=== PATIENT | female | born 1985 | race Two or more races ===

== ENCOUNTER 2017-01-23 11:40 | Inpatient (IN) | payer BC, MEDICAID ==
[~2017-01-23] VITALS: Ht 175.3 cm; Wt 123.6 kg
[~2017-01-23 11:40] MED LIST: SUM25T
[2017-01-23 12:10] LABS: Basophils # (auto) 0 uL; Basophils % (auto) 0.4 % (0.0-2.0); CONDITION Y; DEFINITIVE SEE PRINTOUT; Eosinophils # (auto) 0 uL; Eosinophils % (auto) 0.6 % (0.0-7.0); Hemoglobin 12.4 g/dL (12.2-16.2); Lymphocytes # (auto) 2.1 uL; Lymphocytes % (auto) 41.9 % (10.0-50.0); Mean Corpuscular Hemoglobin 28.7 pg (28.0-32.0); Mean Corpuscular Hgb Conc. 34.4 g/dL (32.0-36.0); Mean Corpuscular Volume 83.5 fL (80.0-100.0); Mean Platelet Volume 9.9 fL (7.4-10.4); Monocytes # (auto) 0.5 uL; Monocytes % (auto) 9.5 % (0.0-12.0); Neutrophils # (auto) 2.4 uL; Neutrophils % (auto) 47.6 % (37.0-80.0); Red Cell Distribution Width 16.7 % (11.6-16.0)
[2017-01-23 12:29] LABS: Platelet Count (auto) 4 10^3/uL (140-450)
[2017-01-23 12:34] LABS: Albumin 3.1 g/dL (3.4-5.0); BUN/Creatinine Ratio 11.8; Bilirubin, Total 0.5 mg/dL (0.2-1.0); Calcium 8.4 mg/dL (8.5-10.1); Potassium 3.4 mmol/L (3.5-5.1); Total Protein 6.6 g/dL (6.4-8.2)
[2017-01-23] MEDS ORDERED: SODIUM CHLORIDE 0.9% 1,000 ML IV ONE (16:53)
[2017-01-23] MEDS ORDERED: NALBUPHINE HCL 10 MG/1ml INJECTION IV ONE (17:00)
[2017-01-23] MEDS ORDERED: POTASSIUM CHL 10% (20 MEQ/15ML) ORAL SOLN PO ONE (17:00)
[2017-01-23] MEDS ORDERED: METOCLOPRAMIDE HCL 5MG/ml INJ 2ml VIAL IV ONE (17:00)
[2017-01-23 17:34] LABS: INR 1.11 (0.9-1.15); Partial Thromboplastin Time 31.2 sec (22.64-33.71); Prothrombin Time 12.1 sec (9.37-12.3)
[2017-01-23 17:39] LABS: Magnesium 1.8 mg/dL (1.6-2.6)
[2017-01-23 18:33] LABS: Urine Bilirubin Negative (Negative); Urine Ca Oxalate Crystal FEW (None Seen); Urine Color Yellow (Yellow); Urine Glucose Normal (Normal); Urine Ketone Negative (Negative); Urine Mucus FEW (None Seen); Urine Nitrite Negative (Negative); Urine RBC 5 /hpf (0 - 4); Urine Squamous Epithelial Cell FEW /hpf (<5); Urine Urobilinogen Normal (Negative)
[2017-01-23 18:34] LABS: Urine Blood 1+ /uL (Negative)
[2017-01-23] MEDS ORDERED: IOHEXOL 300 MG/ML 100ML BOTTLE IJ ONE (19:44)
[2017-01-23] MEDS ORDERED: cefTRIAXone 1GM/50ML D5W 50 ML IV ONE (21:30)
[2017-01-23] MEDS ORDERED: MORPHINE SULFATE 4 MG/ML SYRG IV PRN ×2 (21:30→22:00)
[2017-01-23] MEDS ORDERED: NITROGLYCERIN 0.4 MG SL TAB SL PRN (21:30)
[2017-01-23] MEDS: SODIUM CHLORIDE 0.9% 1,000 ML IV SCH (21:51)
[2017-01-23] MEDS ORDERED: ONDANSETRON HCL 4 MG/2 ML VIAL IV ONE (22:00)
[2017-01-23] MEDS: methylPREDNISolone SOD SUCC 40 MG/ML VL IV SCH (22:33)
[2017-01-23 22:44] VITALS: BP 114/60
[2017-01-23] MEDS: IBUPROFEN 400 MG TAB PO PRN (23:26)
[2017-01-24] VITALS (14 sets, daily range): BP systolic 101–114; BP diastolic 50–76
[2017-01-24] MEDS ORDERED: DIC10C PO (03:01)
[2017-01-24] MEDS: SODIUM CHLORIDE 0.9% 1,000 ML IV SCH ×2 (06:34→17:56)
[2017-01-24] MEDS: methylPREDNISolone SOD SUCC 40 MG/ML VL IV SCH (06:35)
[2017-01-24] MEDS: cefTRIAXone 1GM/50ML D5W 50 ML IV SCH (09:35)
[2017-01-24] MEDS: PANTOPRAZOLE 40 MG TAB PO SCH (09:36)
[2017-01-24] MEDS: DEXAMETHASONE SOD PHOS 10MG/1ML VIAL INJ IV SCH ×2 (12:04→18:05)
[2017-01-24] MEDS: ONDANSETRON HCL 4 MG/2 ML VIAL IV PRN ×2 (12:21→18:05)
[2017-01-24] MEDS: IBUPROFEN 400 MG TAB PO PRN (18:05)
[2017-01-24 18:14] LABS: Basophils # (auto) 0 uL; Basophils % (auto) 0.3 % (0.0-2.0); CONDITION Y; DEFINITIVE SEE PRINTOUT; Eosinophils # (auto) 0 uL; Eosinophils % (auto) 0.2 % (0.0-7.0); Hematocrit 33.7 % (36.0-46.0); Hemoglobin 11.5 g/dL (12.2-16.2); Lymphocytes # (auto) 3.1 uL; Lymphocytes % (auto) 35.6 % (10.0-50.0); Mean Corpuscular Hemoglobin 28.6 pg (28.0-32.0); Mean Corpuscular Volume 84.2 fL (80.0-100.0); Mean Platelet Volume 9.7 fL (7.4-10.4); Monocytes # (auto) 0.8 uL; Monocytes % (auto) 9.8 % (0.0-12.0); Neutrophils # (auto) 4.7 uL; Neutrophils % (auto) 54.1 % (37.0-80.0); White Blood Cell 8.6 10^3/uL (4.4-10.8)
[2017-01-24 18:33] LABS: Platelet Count (auto) 18 10^3/uL (140-450)
[2017-01-25] VITALS (7 sets, daily range): BP systolic 97–116; BP diastolic 44–64
[2017-01-25] MEDS: DEXAMETHASONE SOD PHOS 10MG/1ML VIAL INJ IV SCH ×4 (00:07→19:02)
[2017-01-25] MEDS: ONDANSETRON HCL 4 MG/2 ML VIAL IV PRN ×4 (00:08→19:02)
[2017-01-25] MEDS: SODIUM CHLORIDE 0.9% 1,000 ML IV SCH ×2 (03:30→13:30)
[2017-01-25 06:51] LABS: Basophils # (auto) 0 uL; Basophils % (auto) 0.1 % (0.0-2.0); CONDITION Y; DEFINITIVE SEE PRINTOUT; Eosinophils # (auto) 0 uL; Eosinophils % (auto) 0.2 % (0.0-7.0); Hematocrit 32.1 % (36.0-46.0); Hemoglobin 10.7 g/dL (12.2-16.2); Lymphocytes # (auto) 2.8 uL; Lymphocytes % (auto) 35.3 % (10.0-50.0); Mean Corpuscular Hemoglobin 28.3 pg (28.0-32.0); Mean Corpuscular Hgb Conc. 33.4 g/dL (32.0-36.0); Mean Corpuscular Volume 84.6 fL (80.0-100.0); Mean Platelet Volume 10.5 fL (7.4-10.4); Monocytes # (auto) 0.7 uL; Monocytes % (auto) 8.4 % (0.0-12.0); Neutrophils # (auto) 4.5 uL; Red Cell Distribution Width 18.1 % (11.6-16.0)
[2017-01-25 06:59] LABS: Platelet Count (auto) 14 10^3/uL (140-450)
[2017-01-25 08:10] LABS: Albumin 2.7 g/dL (3.4-5.0); Alkaline Phosphatase 51 U/L (45-117); Aspartate Aminotransferase 8 U/L (15-37); Bilirubin, Direct < 0.1 mg/dL (0-0.2); Bilirubin, Total 0.2 mg/dL (0.2-1.0); Total Protein 5.9 g/dL (6.4-8.2)
[2017-01-25] MEDS: cefTRIAXone 1GM/50ML D5W 50 ML IV SCH (09:19)
[2017-01-25] MEDS: PANTOPRAZOLE 40 MG TAB PO SCH (09:20)
[2017-01-26] MEDS: DEXAMETHASONE SOD PHOS 10MG/1ML VIAL INJ IV SCH ×4 (00:36→18:04)
[2017-01-26] MEDS: ONDANSETRON HCL 4 MG/2 ML VIAL IV PRN ×4 (00:38→18:04)
[2017-01-26] MEDS: SODIUM CHLORIDE 0.9% 1,000 ML IV SCH ×3 (00:39→12:23)
[2017-01-26 05:00] VITALS: BP 112/54
[2017-01-26 05:21] LABS: Basophils # (auto) 0 uL; Basophils % (auto) 0.2 % (0.0-2.0); CONDITION Y; DEFINITIVE SEE PRINTOUT; Eosinophils # (auto) 0 uL; Hematocrit 29.5 % (36.0-46.0); Hemoglobin 9.9 g/dL (12.2-16.2); Lymphocytes # (auto) 1.3 uL; Lymphocytes % (auto) 30.5 % (10.0-50.0); Mean Corpuscular Hemoglobin 28.3 pg (28.0-32.0); Mean Corpuscular Hgb Conc. 33.6 g/dL (32.0-36.0); Mean Corpuscular Volume 84.1 fL (80.0-100.0); Monocytes # (auto) 0.2 uL; Monocytes % (auto) 5.6 % (0.0-12.0); Neutrophils # (auto) 2.8 uL; Neutrophils % (auto) 63.7 % (37.0-80.0); Red Cell Distribution Width 18.1 % (11.6-16.0); White Blood Cell 4.4 10^3/uL (4.4-10.8)
[2017-01-26 05:33] LABS: Platelet Count (auto) 15 10^3/uL (140-450)
[2017-01-26 08:26] VITALS: BP 105/61
[2017-01-26] MEDS: cefTRIAXone 1GM/50ML D5W 50 ML IV SCH (09:00)
[2017-01-26] MEDS: PANTOPRAZOLE 40 MG TAB PO SCH (10:32)
[2017-01-26 12:40] VITALS: BP 113/54
[2017-01-26 15:08] LABS: Sjogren's Anti-SS-A Antibody <0.2 AI (0.0-0.9)
[2017-01-26 16:23] VITALS: BP 114/54
[2017-01-26 22:00] VITALS: BP 119/49
[2017-01-27] MEDS: ONDANSETRON HCL 4 MG/2 ML VIAL IV PRN ×4 (00:12→18:19)
[2017-01-27] MEDS: DEXAMETHASONE SOD PHOS 10MG/1ML VIAL INJ IV SCH ×4 (00:12→18:18)
[2017-01-27] MEDS: SODIUM CHLORIDE 0.9% 1,000 ML IV SCH ×2 (00:14→15:30)
[2017-01-27 05:28] LABS: Basophils # (auto) 0 uL; Basophils % (auto) 0.3 % (0.0-2.0); CONDITION Y; DEFINITIVE SEE PRINTOUT; Eosinophils # (auto) 0 uL; Eosinophils % (auto) 0.1 % (0.0-7.0); Hematocrit 29.2 % (36.0-46.0); Hemoglobin 9.9 g/dL (12.2-16.2); Lymphocytes # (auto) 0.8 uL; Lymphocytes % (auto) 28.9 % (10.0-50.0); Mean Corpuscular Hemoglobin 28.4 pg (28.0-32.0); Mean Corpuscular Hgb Conc. 33.7 g/dL (32.0-36.0); Mean Corpuscular Volume 84.3 fL (80.0-100.0); Mean Platelet Volume 9.8 fL (7.4-10.4); Monocytes # (auto) 0.1 uL; Monocytes % (auto) 5.1 % (0.0-12.0); Neutrophils # (auto) 1.9 uL; Neutrophils % (auto) 65.6 % (37.0-80.0); Platelet Count (auto) 21 10^3/uL (140-450); Red Cell Distribution Width 17.4 % (11.6-16.0); White Blood Cell 2.9 10^3/uL (4.4-10.8)
[2017-01-27 05:49] VITALS: BP 116/60
[2017-01-27 08:00] VITALS: BP 107/60
[2017-01-27 08:36] VITALS: BP 107/60
[2017-01-27] MEDS ORDERED: HYDROmorphone HCL 2 MG/ML VL IV ONE (08:45)
[2017-01-27] MEDS ORDERED: HYDROmorphone HCL 2 MG/ML VL IV PRN (08:45)
[2017-01-27] MEDS: PANTOPRAZOLE 40 MG TAB PO SCH (10:03)
[2017-01-27] MEDS: cefTRIAXone 1GM/50ML D5W 50 ML IV SCH (10:03)
[2017-01-27 13:00] VITALS: BP 123/47
[2017-01-27 16:18] VITALS: BP 112/59
[2017-01-27 22:00] VITALS: BP 110/53
[2017-01-28] MEDS: DEXAMETHASONE SOD PHOS 10MG/1ML VIAL INJ IV SCH ×3 (01:46→12:00)
[2017-01-28] MEDS: ONDANSETRON HCL 4 MG/2 ML VIAL IV PRN ×2 (01:46→06:30)
[2017-01-28] MEDS: SODIUM CHLORIDE 0.9% 1,000 ML IV SCH ×2 (01:46→11:30)
[2017-01-28 05:00] VITALS: BP 123/62
[2017-01-28 05:21] LABS: Basophils # (auto) 0 uL; Basophils % (auto) 0.1 % (0.0-2.0); CONDITION Y; DEFINITIVE SEE PRINTOUT; Eosinophils # (auto) 0 uL; Eosinophils % (auto) 0.1 % (0.0-7.0); Hematocrit 30.6 % (36.0-46.0); Hemoglobin 10.1 g/dL (12.2-16.2); Lymphocytes # (auto) 1.1 uL; Lymphocytes % (auto) 32.9 % (10.0-50.0); Mean Corpuscular Hgb Conc. 33.1 g/dL (32.0-36.0); Mean Corpuscular Volume 84.7 fL (80.0-100.0); Mean Platelet Volume 9.9 fL (7.4-10.4); Monocytes # (auto) 0.2 uL; Monocytes % (auto) 5.9 % (0.0-12.0); Neutrophils # (auto) 2.1 uL; Platelet Count (auto) 29 10^3/uL (140-450); Red Cell Distribution Width 17.1 % (11.6-16.0); White Blood Cell 3.4 10^3/uL (4.4-10.8)
[2017-01-28 08:00] VITALS: BP 117/61
[2017-01-28 08:48] VITALS: BP 117/61
[2017-01-28] MEDS: cefTRIAXone 1GM/50ML D5W 50 ML IV SCH (09:00)
[2017-01-28] MEDS ORDERED: PRE5T PO (09:51)
[2017-01-28] MEDS ORDERED: CIPR-173 PO (09:53)
[2017-01-28] MEDS: PANTOPRAZOLE 40 MG TAB PO SCH (10:00)
[2017-01-28 12:08] VITALS: BP 117/61
[2017-01-28 14:37] VITALS: BP 109/57
[2017-01-28] MEDS ORDERED: predniSONE 20 MG TAB PO SCH (16:00)
== END 2017-01-28 13:15 | disposition home or self-care (01) | DRG 689 ==
LOC: ER 11:40 → OVERFLOW 11:41 → CENTRAL 22:40 → EAST 01-25 15:10
PROVIDERS: ADMIT Nurse Practitioner Family; ATTEND Internal Medicine
PROC: 30233R1 Transfusion of Nonautologous Platelets into Peripheral Vein, Percutaneous Approach (ICD-10-PCS; principal; 2017-01-23)
DX: N39.0 Urinary tract infection, site not specified (principal); E43 Unspecified severe protein-calorie malnutrition; D69.3 Immune thrombocytopenic purpura; Z68.41 Body mass index [BMI] 40.0-44.9, adult; E66.01 Morbid (severe) obesity due to excess calories; E87.6 Hypokalemia; F41.9 Anxiety disorder, unspecified; K58.0 Irritable bowel syndrome with diarrhea; B96.1 Klebsiella pneumoniae [K. pneumoniae] as the cause of diseases classified elsewhere; G43.909 Migraine, unspecified, not intractable, without status migrainosus; Z88.5 Allergy status to narcotic agent; Z88.8 Allergy status to other drugs, medicaments and biological substances
CPT/HCPCS: 36415; 71020; 74177; 76705; 80053; 80076; 81001; 81025; 82607; 83036; 83615; 83690; 83735; 84132; 84443; 84484; 85025; 85610; 85730; 86038; 86703; 86850; 86900; 86901; 87086; 87088; 87186; 87493; 93005; 94761; 96361; 96365; 96375; J0696; J1100; J2405

== ENCOUNTER 2017-03-07 20:48 | Inpatient (IN) | payer BC ==
[~2017-03-07] VITALS: Ht 175.3 cm; Wt 109.5 kg
[~2017-03-07 20:48] MED LIST changes: +CIPR-173 PO; +DIC10C PO; +PRE5T PO
[2017-03-07 21:27] LABS: Urine RBC None Seen /hpf (0 - 4)
[2017-03-07 21:28] LABS: CONDITION Y; DEFINITIVE SEE PRINTOUT; Hematocrit 34.1 % (36.0-46.0); Hemoglobin 11.6 g/dL (12.2-16.2); Mean Corpuscular Hemoglobin 30.9 pg (28.0-32.0); Mean Corpuscular Volume 91.1 fL (80.0-100.0); Mean Platelet Volume 12.6 fL (7.4-10.4); SUSPECT SEE PRINTOUT; White Blood Cell 8.9 10^3/uL (4.4-10.8)
[2017-03-07 21:46] LABS: Amylase 29 U/L (25-115); Anion Gap 10 (5-15); Aspartate Aminotransferase 42 U/L (15-37); BUN/Creatinine Ratio 13.2; Blood Urea Nitrogen 15 mg/dL (7-18); Calcium 7.9 mg/dL (8.5-10.1); Carbon Dioxide 24 mmol/L (21-32); Chloride 106 mmol/L (98-107); GFR African American 72 mL/min; GFR Non-African American 59 mL/min; Glucose 113 mg/dL (74-106); Potassium 4.5 mmol/L (3.5-5.1); Sodium 140 mmol/L (136-145)
[2017-03-07 21:46] LABS: Urine Bilirubin Negative (Negative); Urine Blood Negative /uL (Negative); Urine Color Yellow (Yellow); Urine Glucose Normal (Normal); Urine Ketone Negative (Negative); Urine Nitrite Negative (Negative); Urine Squamous Epithelial Cell FEW /hpf (<5); Urine Urobilinogen Normal (Negative); Urine pH 5.5 (5.0-8.0)
[2017-03-07 21:51] LABS: Alkaline Phosphatase 44 U/L (45-117); Bilirubin, Total 0.4 mg/dL (0.2-1.0); Total Protein 6.3 g/dL (6.4-8.2)
[2017-03-07 22:20] LABS: Red Cell Distribution Width 24.9 % (11.6-16.0)
[2017-03-07 22:26] LABS: Platelet Count (auto) 14 10^3/uL (140-450)
[2017-03-07 22:27] LABS: Myelocytes % 0; Promyelocytes % 0
[2017-03-07 23:32] LABS: Metamyelocytes % 3
[2017-03-07 23:33] LABS: Reactive Lymphocytes 8
[2017-03-07 23:39] LABS: Anisocytosis Slight; Stomatocytes Few
[2017-03-07 23:40] LABS: Platelet Estimate Markedly Decreased
[2017-03-08] VITALS (9 sets, daily range): BP systolic 104–127; BP diastolic 60–82
[2017-03-08] MEDS ORDERED: SODIUM CHLORIDE 0.9% 1,000 ML IV ONE (00:45)
[2017-03-08] MEDS ORDERED: HYDROmorphone HCL 2 MG/ML VL IV ONE (00:45)
[2017-03-08] MEDS ORDERED: ONDANSETRON HCL 4 MG/2 ML VIAL IV ONE (00:45)
[2017-03-08] MEDS ORDERED: ACETAMINOPHEN 500 MG TAB PO ONE (02:45)
[2017-03-08] MEDS: SODIUM CHLORIDE 0.9% 1,000 ML IV SCH (07:05)
[2017-03-08] MEDS ORDERED: TEMAZEPAM 15 MG CAP PO PRN (07:15)
[2017-03-08] MEDS ORDERED: ONDANSETRON HCL 4 MG/2 ML VIAL IV PRN (07:15)
[2017-03-08] MEDS ORDERED: SUMAtriptan SUCCINATE 25 MG TAB PO PRN (07:15)
[2017-03-08] MEDS ORDERED: cefTRIAXone 1GM/50ML D5W 50 ML IV ONE (08:00)
[2017-03-08] MEDS: predniSONE 20 MG TAB PO SCH ×3 (08:00→21:36)
[2017-03-08] MEDS: DICYCLOMINE HCL 10 MG CAP PO SCH ×3 (08:00→21:45)
[2017-03-08] MEDS: FAMOTIDINE 20 MG TAB PO SCH ×2 (10:00→21:36)
[2017-03-08] MEDS: traMADol HCL 50 MG TAB PO PRN ×2 (10:08→21:37)
[2017-03-08] MEDS: ACETAMINOPHEN 325 MG TAB PO PRN (10:50)
[2017-03-08 13:23] LABS: Urine Bilirubin Negative (Negative); Urine Blood Negative /uL (Negative); Urine Color Yellow (Yellow); Urine Glucose Normal (Normal); Urine Ketone Negative (Negative); Urine Nitrite Negative (Negative); Urine RBC None Seen /hpf (0 - 4); Urine Squamous Epithelial Cell FEW /hpf (<5); Urine Urobilinogen Normal (Negative)
[2017-03-09] VITALS (8 sets, daily range): BP systolic 94–120; BP diastolic 50–68
[2017-03-09] MEDS: SODIUM CHLORIDE 0.9% 1,000 ML IV SCH ×2 (05:36→16:25)
[2017-03-09 05:55] LABS: CONDITION Y; DEFINITIVE SEE PRINTOUT; Mean Corpuscular Hemoglobin 30.8 pg (28.0-32.0); Mean Corpuscular Hgb Conc. 33.2 g/dL (32.0-36.0); Mean Corpuscular Volume 92.7 fL (80.0-100.0); Mean Platelet Volume 11.4 fL (7.4-10.4); SUSPECT SEE PRINTOUT; White Blood Cell 5.9 10^3/uL (4.4-10.8)
[2017-03-09] MEDS: predniSONE 20 MG TAB PO SCH ×3 (05:58→22:26)
[2017-03-09] MEDS: DICYCLOMINE HCL 10 MG CAP PO SCH ×3 (05:59→22:00)
[2017-03-09 06:18] LABS: Potassium 5.2 mmol/L (3.5-5.1); Red Cell Distribution Width 25.7 % (11.6-16.0)
[2017-03-09 06:20] LABS: Platelet Count (auto) 17 10^3/uL (140-450)
[2017-03-09 06:21] LABS: Metamyelocytes % 0; Myelocytes % 0; Promyelocytes % 0; Reactive Lymphocytes 0
[2017-03-09 06:23] LABS: Albumin 2.9 g/dL (3.4-5.0); BUN/Creatinine Ratio 20.5; Calcium 8.4 mg/dL (8.5-10.1)
[2017-03-09 06:25] LABS: Bilirubin, Total 0.4 mg/dL (0.2-1.0); Total Protein 6.2 g/dL (6.4-8.2)
[2017-03-09] MEDS: cefTRIAXone 1GM/50ML D5W 50 ML IV SCH (09:06)
[2017-03-09] MEDS: FAMOTIDINE 20 MG TAB PO SCH ×2 (10:38→22:26)
[2017-03-09 11:56] LABS: BUN/Creatinine Ratio 22.5; Calcium 8.5 mg/dL (8.5-10.1); Potassium 4.7 mmol/L (3.5-5.1)
[2017-03-09 15:32] LABS: Platelet Estimate Markedly Decreased
[2017-03-09 15:33] LABS: Anisocytosis Slight; Stomatocytes Few
[2017-03-10] VITALS (9 sets, daily range): BP systolic 104–124; BP diastolic 57–79
[2017-03-10] MEDS: DICYCLOMINE HCL 10 MG CAP PO SCH ×3 (05:30→22:00)
[2017-03-10] MEDS: predniSONE 20 MG TAB PO SCH ×3 (05:35→22:13)
[2017-03-10 06:28] LABS: CONDITION Y; DEFINITIVE SEE PRINTOUT; Hematocrit 29.6 % (36.0-46.0); Hemoglobin 10.1 g/dL (12.2-16.2); Mean Corpuscular Hemoglobin 31.5 pg (28.0-32.0); Mean Corpuscular Hgb Conc. 34.1 g/dL (32.0-36.0); Mean Corpuscular Volume 92.2 fL (80.0-100.0); Mean Platelet Volume 10.6 fL (7.4-10.4); SUSPECT SEE PRINTOUT; White Blood Cell 6.4 10^3/uL (4.4-10.8)
[2017-03-10 06:42] LABS: Platelet Count (auto) 16 10^3/uL (140-450)
[2017-03-10 06:43] LABS: Metamyelocytes % 0; Myelocytes % 0; Promyelocytes % 0; Reactive Lymphocytes 0
[2017-03-10 06:46] LABS: Albumin 2.9 g/dL (3.4-5.0); BUN/Creatinine Ratio 23.9; Calcium 8.4 mg/dL (8.5-10.1); Potassium 4.5 mmol/L (3.5-5.1)
[2017-03-10 06:48] LABS: Bilirubin, Total 0.5 mg/dL (0.2-1.0); Total Protein 6.3 g/dL (6.4-8.2)
[2017-03-10] MEDS: traMADol HCL 50 MG TAB PO PRN ×2 (07:50→17:15)
[2017-03-10 07:52] LABS: Anisocytosis Slight; Hypochromia Slight; Platelet Estimate Markedly Decreased
[2017-03-10] MEDS: SODIUM CHLORIDE 0.9% 1,000 ML IV SCH (09:05)
[2017-03-10] MEDS: cefTRIAXone 1GM/50ML D5W 50 ML IV SCH (09:11)
[2017-03-10] MEDS: FAMOTIDINE 20 MG TAB PO SCH ×2 (09:11→22:13)
[2017-03-10] MEDS: ACETAMINOPHEN 325 MG TAB PO PRN ×2 (10:37→17:23)
[2017-03-10] MEDS ORDERED: DEXAMETHASONE SOD PHOS 4 MG/1ML SDV INJ IV ONE (10:45)
[2017-03-10] MEDS: methylPREDNISolone SOD SUCC 125 MG/2 ML VL IV SCH (22:12)
[2017-03-11] VITALS (9 sets, daily range): BP systolic 96–121; BP diastolic 56–69
[2017-03-11] MEDS: ACETAMINOPHEN 325 MG TAB PO PRN (00:08)
[2017-03-11] MEDS: PIPERACILLIN-TAZO 4.5GM 100 ML IV SCH ×4 (00:08→18:38)
[2017-03-11] MEDS: SODIUM CHLORIDE 0.9% 1,000 ML IV SCH ×2 (01:45→18:37)
[2017-03-11] MEDS: methylPREDNISolone SOD SUCC 125 MG/2 ML VL IV SCH ×3 (05:37→22:00)
[2017-03-11] MEDS: predniSONE 20 MG TAB PO SCH (05:38)
[2017-03-11] MEDS: DICYCLOMINE HCL 10 MG CAP PO SCH ×3 (05:38→22:00)
[2017-03-11 06:20] LABS: CONDITION Y; DEFINITIVE SEE PRINTOUT; Hemoglobin 9.4 g/dL (12.2-16.2); Mean Corpuscular Hemoglobin 31.1 pg (28.0-32.0); Mean Corpuscular Hgb Conc. 33.7 g/dL (32.0-36.0); Mean Corpuscular Volume 92.3 fL (80.0-100.0); Mean Platelet Volume 11.6 fL (7.4-10.4); SUSPECT SEE PRINTOUT
[2017-03-11 06:41] LABS: Albumin 2.9 g/dL (3.4-5.0); BUN/Creatinine Ratio 21.7; Bilirubin, Total 0.6 mg/dL (0.2-1.0); Calcium 8.2 mg/dL (8.5-10.1); Potassium 4.9 mmol/L (3.5-5.1); Red Cell Distribution Width 25.2 % (11.6-16.0); Total Protein 6.4 g/dL (6.4-8.2)
[2017-03-11 06:46] LABS: Platelet Count (auto) 15 10^3/uL (140-450)
[2017-03-11 06:47] LABS: Metamyelocytes % 0; Myelocytes % 0; Promyelocytes % 0
[2017-03-11 07:29] LABS: Reactive Lymphocytes 6
[2017-03-11 07:32] LABS: Anisocytosis Slight; Platelet Estimate Markedly Decreased; Polychromasia Slight; Stomatocytes Few
[2017-03-11] MEDS ORDERED: diphenhdrAMINE HCL 50 MG/1 ML VL IV ONE (09:00)
[2017-03-11] MEDS ORDERED: ACETAMINOPHEN 650 mg PER 20 mL UD PO ONE (09:00)
[2017-03-11] MEDS ORDERED: IV IMM GLOBULIN(IVIG)10%20G/200ML IV SCH (10:00)
[2017-03-11] MEDS: FAMOTIDINE 20 MG TAB PO SCH ×2 (10:28→22:00)
[2017-03-11] MEDS ORDERED: GASTROGRAFIN 30 ML SOL ONE (13:50)
[2017-03-11] MEDS ORDERED: IOHEXOL 300 MG/ML 100ML BOTTLE IJ ONE (16:01)
[2017-03-11] MEDS: diphenhdrAMINE HCL 50 MG/1 ML VL IV SCH (16:18)
[2017-03-11] MEDS: ACETAMINOPHEN 650 mg PER 20 mL UD PO SCH (16:18)
[2017-03-11] MEDS: IMMUNE GLOBULIN 10% IV SCH (17:02)
[2017-03-12 04:40] VITALS: BP 125/55
[2017-03-12 06:00] LABS: Basophils # (auto) 0 uL; Basophils % (auto) 0.3 % (0.0-2.0); CONDITION Y; DEFINITIVE SEE PRINTOUT; Eosinophils # (auto) 0 uL; Eosinophils % (auto) 0.1 % (0.0-7.0); Hematocrit 25.7 % (36.0-46.0); Hemoglobin 8.7 g/dL (12.2-16.2); Lymphocytes # (auto) 1.7 uL; Lymphocytes % (auto) 26.8 % (10.0-50.0); Mean Corpuscular Hemoglobin 31.3 pg (28.0-32.0); Mean Corpuscular Hgb Conc. 33.8 g/dL (32.0-36.0); Mean Corpuscular Volume 92.6 fL (80.0-100.0); Mean Platelet Volume 11.2 fL (7.4-10.4); Monocytes # (auto) 0.6 uL; Monocytes % (auto) 10.1 % (0.0-12.0); Neutrophils # (auto) 3.9 uL; Neutrophils % (auto) 62.7 % (37.0-80.0); SUSPECT SEE PRINTOUT; White Blood Cell 6.3 10^3/uL (4.4-10.8)
[2017-03-12] MEDS: DICYCLOMINE HCL 10 MG CAP PO SCH ×3 (06:00→21:50)
[2017-03-12 06:16] LABS: Albumin 2.3 g/dL (3.4-5.0); Calcium 7.1 mg/dL (8.5-10.1); Potassium 4.3 mmol/L (3.5-5.1)
[2017-03-12 06:18] LABS: Platelet Count (auto) 16 10^3/uL (140-450)
[2017-03-12] MEDS: methylPREDNISolone SOD SUCC 125 MG/2 ML VL IV SCH ×3 (06:20→21:50)
[2017-03-12] MEDS: PIPERACILLIN-TAZO 4.5GM 100 ML IV SCH ×4 (06:20→18:00)
[2017-03-12 06:22] LABS: BUN/Creatinine Ratio 31.3; Bilirubin, Total 0.2 mg/dL (0.2-1.0); Total Protein 6.2 g/dL (6.4-8.2)
[2017-03-12 07:18] VITALS: BP 111/57
[2017-03-12 07:39] LABS: Anisocytosis Slight; Large Platelets FEW; Platelet Estimate Markedly Decreased; Stomatocytes Few
[2017-03-12] MEDS: FAMOTIDINE 20 MG TAB PO SCH ×2 (10:59→21:50)
[2017-03-12] MEDS: SODIUM CHLORIDE 0.9% 1,000 ML IV SCH (10:59)
[2017-03-12 11:47] VITALS: BP 107/63
[2017-03-12] MEDS: ACETAMINOPHEN 650 mg PER 20 mL UD PO SCH (14:14)
[2017-03-12] MEDS: diphenhdrAMINE HCL 50 MG/1 ML VL IV SCH (14:14)
[2017-03-12] MEDS: IMMUNE GLOBULIN 10% IV SCH ×2 (15:21→20:11)
[2017-03-12 16:30] VITALS: BP 117/71
[2017-03-12 20:56] VITALS: BP 104/65
[2017-03-13] MEDS: PIPERACILLIN-TAZO 4.5GM 100 ML IV SCH ×4 (00:03→14:05)
[2017-03-13] MEDS: SODIUM CHLORIDE 0.9% 1,000 ML IV SCH ×2 (03:06→20:39)
[2017-03-13 05:00] VITALS: BP 103/56
[2017-03-13] MEDS: DICYCLOMINE HCL 10 MG CAP PO SCH ×3 (05:26→21:20)
[2017-03-13] MEDS: methylPREDNISolone SOD SUCC 125 MG/2 ML VL IV SCH ×3 (06:00→21:20)
[2017-03-13 06:40] LABS: Albumin 2.7 g/dL (3.4-5.0); BUN/Creatinine Ratio 27.5; Bilirubin, Total 0.7 mg/dL (0.2-1.0); Potassium 4.7 mmol/L (3.5-5.1); Total Protein 7.4 g/dL (6.4-8.2)
[2017-03-13 06:48] LABS: Basophils # (auto) 0 uL; CONDITION Y; DEFINITIVE SEE PRINTOUT; Eosinophils # (auto) 0 uL; Hemoglobin 8.7 g/dL (12.2-16.2); Monocytes # (auto) 0.5 uL; Monocytes % (auto) 9.9 % (0.0-12.0)
[2017-03-13 07:28] LABS: Basophils % (auto) 0.1 % (0.0-2.0); Eosinophils % (auto) 0.1 % (0.0-7.0); Hematocrit 25.7 % (36.0-46.0); Lymphocytes % (auto) 20.1 % (10.0-50.0); Mean Corpuscular Hemoglobin 31.7 pg (28.0-32.0); Mean Corpuscular Volume 93.1 fL (80.0-100.0); Mean Platelet Volume 10.8 fL (7.4-10.4); Neutrophils # (auto) 3.4 uL; Neutrophils % (auto) 69.8 % (37.0-80.0); Platelet Count (auto) 25 10^3/uL (140-450); SUSPECT SEE PRINTOUT; White Blood Cell 4.9 10^3/uL (4.4-10.8)
[2017-03-13 07:31] LABS: Red Cell Distribution Width 25.8 % (11.6-16.0)
[2017-03-13 07:48] VITALS: BP 102/53
[2017-03-13 08:00] VITALS: BP 119/65
[2017-03-13] MEDS: FAMOTIDINE 20 MG TAB PO SCH ×2 (08:48→21:21)
[2017-03-13 08:59] LABS: Platelet Estimate Markedly Decreased
[2017-03-13 09:00] LABS: Anisocytosis Slight; Large Platelets FEW; Stomatocytes Few
[2017-03-13 12:05] VITALS: BP 119/65
[2017-03-13] MEDS: diphenhdrAMINE HCL 50 MG/1 ML VL IV SCH (13:19)
[2017-03-13] MEDS: ACETAMINOPHEN 650 mg PER 20 mL UD PO SCH (13:19)
[2017-03-13 17:16] VITALS: BP 117/58
[2017-03-13 22:00] VITALS: BP 105/59
[2017-03-14 05:00] VITALS: BP 101/53
[2017-03-14] MEDS: PIPERACILLIN-TAZO 4.5GM 100 ML IV SCH ×2 (05:55)
[2017-03-14] MEDS: methylPREDNISolone SOD SUCC 125 MG/2 ML VL IV SCH (05:55)
[2017-03-14] MEDS: DICYCLOMINE HCL 10 MG CAP PO SCH (05:55)
[2017-03-14 06:16] LABS: Basophils # (auto) 0 uL; Basophils % (auto) 0.2 % (0.0-2.0); CONDITION Y; DEFINITIVE SEE PRINTOUT; Eosinophils # (auto) 0 uL; Eosinophils % (auto) 0.1 % (0.0-7.0); Hematocrit 25.7 % (36.0-46.0); Hemoglobin 8.8 g/dL (12.2-16.2); Lymphocytes # (auto) 1.1 uL; Lymphocytes % (auto) 21.7 % (10.0-50.0); Mean Corpuscular Hemoglobin 31.7 pg (28.0-32.0); Mean Corpuscular Volume 93.3 fL (80.0-100.0); Mean Platelet Volume 10.8 fL (7.4-10.4); Monocytes # (auto) 0.6 uL; Monocytes % (auto) 12.4 % (0.0-12.0); Neutrophils # (auto) 3.2 uL; Neutrophils % (auto) 65.6 % (37.0-80.0); Platelet Count (auto) 44 10^3/uL (140-450); White Blood Cell 4.9 10^3/uL (4.4-10.8)
[2017-03-14 06:57] LABS: Albumin 2.6 g/dL (3.4-5.0); BUN/Creatinine Ratio 23.8; Bilirubin, Total 0.5 mg/dL (0.2-1.0); Calcium 8.1 mg/dL (8.5-10.1); Potassium 5.1 mmol/L (3.5-5.1); Total Protein 7.9 g/dL (6.4-8.2)
[2017-03-14 07:33] LABS: Red Cell Distribution Width 24.2 % (11.6-16.0)
[2017-03-14 08:00] VITALS: BP 105/61
[2017-03-14 08:11] VITALS: BP 105/61
[2017-03-14 08:35] LABS: Anisocytosis Moderate; Large Platelets FEW; Platelet Estimate Decreased
[2017-03-14] MEDS: FAMOTIDINE 20 MG TAB PO SCH (09:23)
[2017-03-14 10:09] VITALS: BP 105/61
== END 2017-03-14 11:57 | disposition home or self-care (01) | DRG 813 ==
LOC: ER 20:52 → TELE 20:53 → WEST WING 03-08 19:47
PROVIDERS: ADMIT Nurse Practitioner; ATTEND Internal Medicine
PROC: 30233R1 Transfusion of Nonautologous Platelets into Peripheral Vein, Percutaneous Approach (ICD-10-PCS; principal; 2017-03-08)
DX: D69.3 Immune thrombocytopenic purpura (principal); N39.0 Urinary tract infection, site not specified; E66.9 Obesity, unspecified; Z80.1 Family history of malignant neoplasm of trachea, bronchus and lung; K58.9 Irritable bowel syndrome, unspecified; Z82.49 Family history of ischemic heart disease and other diseases of the circulatory system; Z87.440 Personal history of urinary (tract) infections; Z88.8 Allergy status to other drugs, medicaments and biological substances
CPT/HCPCS: 36415; 70450; 71010; 71260; 74177; 80048; 80053; 81001; 81025; 82150; 83690; 84484; 85007; 85025; 85027; 86850; 86900; 86901; 87040; 87086; 87493; 93005; 96361; 96365; 96375; J0696; J1100; J1459; J2405; J2543